=== PATIENT | female | born 1965 | race Caucasian/White ===

== ENCOUNTER 2019-01-24 09:57 | Day surgery (SDC) | payer BC ==
[~2019-01-24] VITALS: Ht 172.7 cm; Wt 79.7 kg
[~2019-01-24 09:57] MED LIST: AMLODIPINE; BACLOFEN; CLONAZEPAM; GABAPENTIN; IBUPROFEN; LORATADINE; MONTELUKAST; OMEPRAZOLE; PROAIR INHALER; RANITIDINE; SIMVASTATIN; TRAZADONE; ZANTAC
[2019-01-24 10:31] VITALS: Ht 172.7 cm; Wt 79.7 kg
[2019-01-24 11:04] VITALS: BP 143/85; PULSE 63; RESP 16
[2019-01-24] MEDS ORDERED: FENTAnyl 50 MCG/ML VIAL ONE (12:19)
[2019-01-24] MEDS ORDERED: PROPOFOL 20 ML ONE ×2 (12:19→12:50)
[2019-01-24 13:20] VITALS: BP 120/76; PULSE 64; RESP 20
== END 2019-01-24 15:18 | disposition home or self-care (01) ==
LOC: EDSEX 09:57 → GIL 09:57
PROVIDERS: ATTEND Internal Medicine Gastroenterology
DX: Z12.11 Encounter for screening for malignant neoplasm of colon (principal); K64.8 Other hemorrhoids; K57.30 Diverticulosis of large intestine without perforation or abscess without bleeding; K21.9 Gastro-esophageal reflux disease without esophagitis; I10 Essential (primary) hypertension; J45.909 Unspecified asthma, uncomplicated
CPT/HCPCS: 88305; J3010